=== PATIENT | female | born 1985 | race Caucasian/White ===

== ENCOUNTER 2017-03-06 19:07 | Emergency (ER) | payer BC, OTHER ==
[~2017-03-06] VITALS: Ht 167.6 cm; Wt 66.0 kg
[2017-03-06 19:46] VITALS: Ht 167.6 cm; Wt 66.0 kg
[2017-03-06] MEDS ORDERED: IBUP800T25 PO (20:21)
[2017-03-06] MEDS ORDERED: HYDR-902 PO (20:21)
--- NOTE | 2017-03-06 20:23 | ERD ---
ER Documentation Chief Complaint Date/Time DATE: 03/06/17 TIME: 20:22 Chief Complaint Right Foot pain x2 months HPI This is a 31-year-old female who is complaining of pain in her left medial foot at the base of the arch. She did pain for 2 months. The patient says she is on her feet all day at work. Patient does not wear supportive shoes with arches. She is now starting to experiment wearing tennis shoes no shoes but says that the pain is still there. Patient says she is on her feet for hours a day. She has no pain in her ankles or knees or hips. The pain is described as sharp and worse with walking or standing and better with rest. She says the pain in the morning is not there but gets worse as the day goes on. No swelling or erythema ROS All systems reviewed and are negative except as per history of present illness. Medications Home Meds Active Scripts Hydrocodone/Acetaminophen ([place] 10-325 Tablet) 1 Each Tablet, 1 TAB PO Q6H Y for PAIN, #20 TAB Prov:CYRUS BENITES DO 03/06/17 Ibuprofen* (Motrin*) 800 Mg Tab, 800 MG PO Q6H Y for PAIN AND OR ELEVATED TEMP, #30 TAB Prov:YOLANDA BENITESSTLES Henson DO 03/06/17 Allergies Allergies: Coded Allergies: No Known Allergy (Unverified , 03/06/17) PMhx/Soc History of Surgery: No Anesthesia Reaction: No Hx Neurological Disorder: No Hx Respiratory Disorders: No Hx Cardiac Disorders: No Hx Psychiatric Problems: No Hx Alcohol Use: No Hx Substance Use: No Hx Tobacco Use: No Smoking Status: Never smoker FmHx Family History: No coronary disease Physical Exam Vitals Vital Signs Date Time Temp Pulse Resp B/P Pulse Ox O2 Delivery O2 Flow Rate FiO2 03/06/17 19:46 98.3 72 20 114/73 100 Physical Exam Const: Well-developed, well-nourished Head: Atraumatic, normocephalic Eyes: Normal Conjunctiva, PERRLA, EOMI, normal sclera, no nystagmus ENT: Normal External Ears, Nose and Mouth, moist mucus membranes. Neck: Full range of motion. No meningismus, no lymphadenopathy. Resp: Clear to auscultation bilaterally, no wheezing, rhonchi, rales Cardio: Regular rate and rhythm, no murmurs, S1 S2 present Abd: Soft, non tender x 4, non distended. Normal bowel sounds, no guarding or rebound, no pulsitile abdominal masses or bruits Skin: No petechiae or rashes, no ecchymosis , no maculopapular rash Back: No midline or flank tenderness Ext: No cyanosis, or edema, FROM x 4, normal inspection, neurovascularly intact x 4, tenderness to the medial base portion of the left foot arch. There is tenderness at the bones there. No swelling no redness Neur: Awake and alert, STR 5/5 x 4, sensation intact x 4, no focal findings, cerebellum intact Psych: Normal Mood and Affect Procedures/MDM Patient had an x-ray 1 week ago that was read as normal. Patient likely needs better shoes and/or arch support. Just told the patient to go to a specific store that will video her gait to get her the proper fitting shoe and may need some arch support. Departure Diagnosis: Primary Impression: Foot pain Laterality: left Qualified Code: M79.672 - Left foot pain Condition: Stable Patient Instructions: Sprain Foot Referrals: MICHAEL GARCIA DPM, APOSTOLOS A. DO Mar 06, 2017 20:23
== END 2017-03-06 20:50 | disposition home or self-care (01) ==
LOC: FTE 19:07
DX: M79.672 Pain in left foot (principal)
CPT/HCPCS: 99283